=== PATIENT | male | born 1965 | race Two or more races ===

== ENCOUNTER 2018-01-04 08:34 | Emergency (ER) | payer MEDICAID ==
[~2018-01-04] VITALS: Ht 162.6 cm; Wt 93.3 kg
[~2018-01-04 08:34] MED LIST: ALPR-624 PO; FLO0.4C PO; NITR0.4T48 SL
[2018-01-04] MEDS ORDERED: ondansetron 4mg rapidly disintigrating tab PO ONE (09:15)
[2018-01-04] MEDS ORDERED: ONDA8TAB9 PO (09:49)
[2018-01-04 10:10] VITALS: BP 117/75
== END 2018-01-04 10:11 | disposition home or self-care (01) ==
LOC: ER 08:35
DX: J11.1 Influenza due to unidentified influenza virus with other respiratory manifestations (principal); B34.9 Viral infection, unspecified; Z88.8 Allergy status to other drugs, medicaments and biological substances
CPT/HCPCS: 71045; 87502; 87503; 99285

== ENCOUNTER 2019-03-19 02:32 | Emergency (ER) | payer MEDICAID ==
[~2019-03-19] VITALS: Ht 162.6 cm; Wt 86.1 kg
[~2019-03-19 02:32] MED LIST changes: +ONDA8TAB9 PO
[2019-03-19 02:40] VITALS: BP 143/78
[2019-03-19] MEDS ORDERED: DIPH25CA83 PO (03:54)
[2019-03-19] MEDS ORDERED: PANT-47 PO (10:37)
== END 2019-03-19 04:20 | disposition home or self-care (01) ==
LOC: ER 02:33
DX: H93.13 Tinnitus, bilateral (principal); M19.90 Unspecified osteoarthritis, unspecified site; Z88.8 Allergy status to other drugs, medicaments and biological substances; Z79.899 Other long term (current) drug therapy; Z56.0 Unemployment, unspecified
CPT/HCPCS: 99282

== ENCOUNTER 2019-03-19 09:10 | Emergency (ER) | payer MEDICAID ==
[~2019-03-19] VITALS: Ht 162.6 cm; Wt 93.2 kg
[~2019-03-19 09:10] MED LIST changes: +DIPH25CA83 PO
[2019-03-19] MEDS ORDERED: acetaminophen 325mg tablet PO ONE (09:55)
[2019-03-19] MEDS ORDERED: normal saline 1000ML IV soln IVB ONE (09:55)
[2019-03-19] MEDS ORDERED: ondansetron/PF 4mg/2ml inj IV ONE (09:55)
[2019-03-19 10:15] LABS: BASOPHILS % (AUTO) 0.3 % (0-1); EOSINOPHILS % (AUTO) 0.2 % (0-6); HEMATOCRIT 45.9 % (42.0-52.0); HEMOGLOBIN 15.3 g/dl (14.0-17.9); LYMPHOCYTES # (AUTO) 0.8 X10'3 (1.1-4.8); LYMPHOCYTES % (AUTO) 10.7 % (21-51); MEAN CORPUSCULAR HEMOGLOBIN 29.1 PG (27.0-31.0); MEAN CORPUSCULAR HGB CONC 33.3 g/dL (33.0-36.5); MEAN CORPUSCULAR VOLUME 87.6 FL (78-98); MEAN PLATELET VOLUME 9.4 FL (7.4-10.4); MONOCYTES # (AUTO) 0.5 X10'3 (0-0.9); MONOCYTES % (AUTO) 6.7 % (2-12); NEUTROPHILS % (AUTO) 82.1 % (42-75); PLATELET COUNT 143 X10'3 (140-440); RED BLOOD COUNT 5.24 X10'6 (4.70-6.10); RED CELL DISTRIBUTION WIDTH 16.1 % (11.5-14.5); WHITE BLOOD COUNT 7.4 X10'3 (4.5-11.0)
[2019-03-19 10:24] LABS: ALANINE AMINOTRANSFERASE 27 U/L (12-78); ALBUMIN 4.1 G/DL (3.4-5.0); ALBUMIN/GLOBULIN RATIO 1.4 (1.1-1.5); ALKALINE PHOSPHATASE 77 IU/L (46-116); ANION GAP 8 (8-16); ASPARTATE AMINO TRANSFERASE 22 U/L (10-37); BILIRUBIN,TOTAL 1.1 MG/DL (0.1-1.0); BLOOD UREA NITROGEN 9 MG/DL (7-18); BUN/CREATININE RATIO 10.1 (5.4-32.0); CALCIUM 9.1 MG/DL (8.5-10.1); CHLORIDE 104 MMOL/L (99-107); CREATININE 0.89 MG/DL (0.60-1.10); GLUCOSE 121 MG/DL (70-104); POTASSIUM 3.1 MMOL/L (3.5-5.1); SODIUM 137 MMOL/L (135-145); TOTAL CARBON DIOXIDE 25.2 MMOL/L (24-32); eGFR 89 ML/MIN
[2019-03-19 10:27] LABS: TROPONIN I < 0.04 NG/ML (0.0-0.05)
[2019-03-19] MEDS ORDERED: potassium Cl 20 mEq SR tablet PO STA (10:28)
[2019-03-19 10:33] LABS: MAGNESIUM 2.1 MG/DL (1.5-2.4)
[2019-03-19] MEDS ORDERED: PANT-47 PO (10:37)
[2019-03-19 11:11] VITALS: BP 149/78
== END 2019-03-19 11:12 | disposition home or self-care (01) ==
LOC: ER 09:11
DX: E87.6 Hypokalemia (principal); R10.84 Generalized abdominal pain; M19.90 Unspecified osteoarthritis, unspecified site; Z56.0 Unemployment, unspecified; Z88.6 Allergy status to analgesic agent; Z79.899 Other long term (current) drug therapy
CPT/HCPCS: 36415; 80053; 83735; 84484; 85025; 93005; 96374; 99284; J2405; J7030

== ENCOUNTER 2020-09-20 06:16 | Day surgery (SDC) | payer MEDICAID ==
[2020-09-13 14:59] LABS: BASOPHILS # (AUTO) 0.1 X10'3 (0-0.2); BASOPHILS % (AUTO) 0.9 % (0-1); EOSINOPHILS # (AUTO) 0.3 X10'3 (0-0.9); EOSINOPHILS % (AUTO) 5.2 % (0-6); LYMPHOCYTES # (AUTO) 1.4 X10'3 (1.1-4.8); LYMPHOCYTES % (AUTO) 22.6 % (21-51); MEAN CORPUSCULAR HEMOGLOBIN 32.7 PG (27.0-31.0); MEAN CORPUSCULAR HGB CONC 34.2 g/dL (33.0-36.5); MEAN CORPUSCULAR VOLUME 95.7 FL (78-98); MEAN PLATELET VOLUME 10.1 FL (7.4-10.4); MONOCYTES # (AUTO) 0.5 X10'3 (0-0.9); MONOCYTES % (AUTO) 7.6 % (2-12); NEUTROPHILS # (AUTO) 4.1 X10'3 (1.8-7.7); NEUTROPHILS % (AUTO) 63.7 % (42-75); PRE OP HEMATOCRIT 46.3 % (42.0-52.0); PRE OP HEMOGLOBIN 15.8 g/dL (14.0-17.9); PRE OP PLATELET COUNT 142 X10'3 (140-440); RED BLOOD COUNT 4.83 X10'6 (4.70-6.10); RED CELL DISTRIBUTION WIDTH 13.6 % (11.5-14.5)
[2020-09-13 15:05] LABS: ALBUMIN 3.9 G/DL (3.4-5.0); ALBUMIN/GLOBULIN RATIO 1.3 (1.1-1.5); ALKALINE PHOSPHATASE 77 IU/L (46-116); BLOOD UREA NITROGEN 18 MG/DL (7-18); BUN/CREATININE RATIO 18.9 (5.4-32.0); CALCIUM 8.2 MG/DL (8.5-10.1); CHLORIDE 102 MMOL/L (99-107); CREATININE 0.95 MG/DL (0.60-1.10); PRE OP ALT 32 U/L (30-65); PRE OP ANION GAP 8 (8-16); PRE OP AST 26 U/L (10-37); PRE OP BILIRUB, TOTAL 0.9 MG/DL (0.0-1.0); PRE OP GLUCOSE 102 MG/DL (70-104); PRE OP SODIUM 137 MMOL/L (135-145); TOTAL CARBON DIOXIDE 27.2 MMOL/L (24-32); eGFR 82 ML/MIN
[~2020-09-20] VITALS: Ht 157.5 cm; Wt 98.9 kg
[2020-09-20] VITALS (7 sets, daily range): BP systolic 107–121; BP diastolic 65–75
[~2020-09-20 06:16] MED LIST changes: -ALPR-624 PO; +BUSP10TA11 PO; -DIPH25CA83 PO; +DIVA-81 PO; +DOCUMENT DATE & TIME OF BETA-BLOCKER PO ONE; +DULO-31 PO; -FLO0.4C PO; +HYDR-4353 PO; -NITR0.4T48 SL; -ONDA8TAB9 PO; +PROP10TA10 PO; +TERA5CAP4 PO; +TRAZ-256 PO; +ceFAZolin 2gm in dextrose, iso 50 ML IV ONE; +famotidine 10mg tablet PO ONE; +ringers solution, lacted 1,000 ML IV SCH
[2020-09-20] MEDS ORDERED: BUPIVAcaine/PF 2.5mg/ml (0.25%) 10ml vial ONE (06:40)
[2020-09-20] MEDS ORDERED: ondansetron/PF 4mg/2ml inj IV PRN (07:25)
[2020-09-20] MEDS ORDERED: proCHLORperazine 10 MG/2 ml inj IV PRN (07:25)
[2020-09-20] MEDS ORDERED: meperidine/PF 25mg/ml syringe IV PRN ×2 (07:25)
[2020-09-20] MEDS ORDERED: ringers solution, lacted 1,000 ML IV SCH (07:25)
[2020-09-20] MEDS ORDERED: morphine 4 MG/ML inj SYRINge IV PRN (07:25)
[2020-09-20] MEDS ORDERED: morphine 2 MG/ML inj. syringe IV PRN (07:25)
[2020-09-20] MEDS ORDERED: LIDOcaine 1% 30ml preserv. free vial ONE (07:34)
[2020-09-20] MEDS ORDERED: fentaNYL/PF 50MCG/1 ML 2ML syringe ONE (08:30)
[2020-09-20] MEDS ORDERED: MIDAZolam 5mg/5ml vial ONE (08:30)
[2020-09-20] MEDS ORDERED: ketorolac trometh. 30mg/ml inj. ONE (08:36)
[2020-09-20] MEDS ORDERED: 0.9 % SODIUM CHLORIDE 10 ML VIAL ONE (08:36)
[2020-09-20] MEDS ORDERED: propofol inj 20 ML IV ONE (09:04)
--- NOTE | 2020-09-20 09:16 | NUR ---
Received from OR via [facility] , accompanied by Anesthesiologist PARADISE and report given by Anesthesiolgist. PATIENT WITH 20G PIV IN RIGHT UE RUNNING LR AT 100. LEFT WRIST DRESSING IS CDI. + CAP REFILL. NO DRAINAGE PRESENT TO LEFT WRIST DRESSING. VSS. Addendum: 09/20/20 at 0924 by Patricio Shaikh RN, RN Amended: Links added.
[2020-09-20] MEDS: meperidine/PF 25mg/ml syringe IV PRN ×2 (09:28→09:50)
--- NOTE | 2020-09-20 10:16 | NUR ---
D/C FROM PACU PATIENT AND FAMILY AND THEY HAVE VERBALIZED UNDERSTANDING, OPPORTUNITY TO ASK QUESTIONS GIVEN AND PATIENT COMFORTABLE WITH DC. IV TAKEN OUT WITHOUT COMPLICATION. PATIENT HAS MET ALL DC CRITERIA FOR DC HOME. I HAVE REVIEWED D/C INSTRUCTIONS WITH OUT VIA WHEELCHAIR WHERE PATIENT WAS TAKEN HOME WITH ALL BELONGINGS. FAMILY GAVE PATIENT TRANSPORT HOME. Addendum: 09/20/20 at 1017 by Patricio Shaikh RN, RN Amended: Links added.
== END 2020-09-20 10:16 | disposition home or self-care (01) ==
LOC: PAS 06:16
PROVIDERS: ATTEND Orthopaedic Surgery Hand Surgery
DX: G56.22 Lesion of ulnar nerve, left upper limb (principal); M62.542 Muscle wasting and atrophy, not elsewhere classified, left hand; M19.011 Primary osteoarthritis, right shoulder; M17.0 Bilateral primary osteoarthritis of knee; I10 Essential (primary) hypertension; N40.0 Benign prostatic hyperplasia without lower urinary tract symptoms; E66.01 Morbid (severe) obesity due to excess calories; Z68.38 Body mass index [BMI] 38.0-38.9, adult; Z98.890 Other specified postprocedural states; Z20.828 Contact with and (suspected) exposure to other viral communicable diseases; Z79.899 Other long term (current) drug therapy; Z87.891 Personal history of nicotine dependence; Z88.8 Allergy status to other drugs, medicaments and biological substances
CPT/HCPCS: 36415; 64719; 64721; 80053; 82948; 85025; 87635; 93005; J1885; J2001; J2175; J2250; J2270; J2704; J3010; J3490; A4215; J7120

== ENCOUNTER 2020-10-22 08:16 | Inpatient (IN) | payer MEDICARE, MEDICAID ==
[2020-10-14 15:00] LABS: BASOPHILS % (AUTO) 0.4 % (0-1); EOSINOPHILS # (AUTO) 0.3 X10'3 (0-0.9); EOSINOPHILS % (AUTO) 4.6 % (0-6); LYMPHOCYTES # (AUTO) 1.3 X10'3 (1.1-4.8); LYMPHOCYTES % (AUTO) 20.6 % (21-51); MEAN CORPUSCULAR HEMOGLOBIN 33.4 PG (27.0-31.0); MEAN CORPUSCULAR HGB CONC 34.3 g/dL (33.0-36.5); MEAN CORPUSCULAR VOLUME 97.2 FL (78-98); MEAN PLATELET VOLUME 10.2 FL (7.4-10.4); MONOCYTES # (AUTO) 0.5 X10'3 (0-0.9); MONOCYTES % (AUTO) 8.1 % (2-12); NEUTROPHILS # (AUTO) 4.1 X10'3 (1.8-7.7); NEUTROPHILS % (AUTO) 66.3 % (42-75); PRE OP HEMATOCRIT 47.4 % (42.0-52.0); PRE OP HEMOGLOBIN 16.3 g/dL (14.0-17.9); PRE OP PLATELET COUNT 155 X10'3 (140-440); RED BLOOD COUNT 4.88 X10'6 (4.70-6.10); RED CELL DISTRIBUTION WIDTH 13.1 % (11.5-14.5)
[2020-10-14 15:10] LABS: HEMOGLOBIN A1C 5.7 % (4.5-6.2)
[2020-10-14 15:15] LABS: ALBUMIN/GLOBULIN RATIO 1.3 (1.1-1.5); ALKALINE PHOSPHATASE 87 IU/L (46-116); BLOOD UREA NITROGEN 15 MG/DL (7-18); BUN/CREATININE RATIO 19.2 (5.4-32.0); CALCIUM 8.3 MG/DL (8.5-10.1); CHLORIDE 102 MMOL/L (99-107); CREATININE 0.78 MG/DL (0.60-1.10); PRE OP ALT 27 U/L (30-65); PRE OP ANION GAP 7 (8-16); PRE OP AST 16 U/L (10-37); PRE OP BILIRUB, TOTAL 0.7 MG/DL (0.0-1.0); PRE OP GLUCOSE 117 MG/DL (70-104); PRE OP POTASSIUM 4.2 MMOL/L (3.4-5.1); PRE OP SODIUM 137 MMOL/L (135-145); TOTAL CARBON DIOXIDE 27.8 MMOL/L (24-32); eGFR > 90 ML/MIN
[~2020-10-22] VITALS: Ht 162.6 cm; Wt 100.9 kg
[2020-10-22] VITALS (19 sets, daily range): BP systolic 106–163; BP diastolic 51–127
[~2020-10-22 08:16] MED LIST changes: -famotidine 10mg tablet PO ONE; +famotidine 20mg tablet PO ONE; -ringers solution, lacted 1,000 ML IV SCH; +tranexamic acid 1gm/0.7% sal. 100 ML IV ONE; +vancomycin 1,500 MG in NS 300ml IV soln IV ONE
[2020-10-22] MEDS: ringers solution, lacted 1,000 ML IV SCH ×2 (09:05→18:09)
[2020-10-22] MEDS ORDERED: mineral oil 10ml sterile, topical TP ONE (11:03)
[2020-10-22] MEDS ORDERED: ROPIVAcaine inj 200 MG, ketorolac tromethamine inj. 15 MG in normal saline 100ml IV sol... IU ONE ×2 (11:15→11:40)
[2020-10-22] MEDS ORDERED: proCHLORperazine 10 MG/2 ml inj IV PRN (11:40)
[2020-10-22] MEDS ORDERED: acetaminophen 1,000mg/100ml IV 100 ML IV PRN (11:40)
[2020-10-22] MEDS ORDERED: ringers solution, lacted 1,000 ML IV SCH (11:40)
[2020-10-22] MEDS ORDERED: morphine 4 MG/ML inj SYRINge IV PRN (11:40)
[2020-10-22] MEDS ORDERED: HYDROmorphone/PF 0.2 MG/ML SYRINGE IV PRN ×2 (11:40)
[2020-10-22] MEDS ORDERED: ROPIVAcaine 0.2% (10 MG/5 ML) BOLUS INJECTION ADDCANAL PRN (11:40)
[2020-10-22] MEDS ORDERED: ondansetron/PF 4mg/2ml inj IV PRN ×2 (11:40→15:45)
[2020-10-22] MEDS ORDERED: meperidine/PF 25mg/ml syringe IV PRN (11:40)
[2020-10-22] MEDS ORDERED: morphine 2 MG/ML inj. syringe IV PRN (11:40)
[2020-10-22] MEDS ORDERED: tetracaine 1% (10mg/ml) pres. free inj. ONE (11:43)
[2020-10-22] MEDS ORDERED: MIDAZolam 5mg/5ml vial ONE (12:33)
[2020-10-22] MEDS ORDERED: propofol inj 20 ML IV ONE ×6 (12:58→14:26)
[2020-10-22] MEDS ORDERED: ePHEDrine 50MG/ML INJ. ONE ×2 (13:32→13:35)
[2020-10-22] MEDS ORDERED: phenylephrine 10mg/ml inj. ONE (14:02)
[2020-10-22] MEDS ORDERED: 0.9 % SODIUM CHLORIDE 10 ML VIAL ONE (14:02)
[2020-10-22] MEDS ORDERED: ROPIVAcaine 0.5% (5mg/ml) 30ml vial ONE (14:53)
--- NOTE | 2020-10-22 15:39 | NUR ---
Received from OR via , accompanied by Anesthesiologist DR PAGE and report given by Anesthesiolgist. AWAKE AND ДМИТРИЙ PAIN. VITALS STABLE. DRESSING DI. SENSATION JUST ABOVE THE HIPS. GARCIA WITH CLEAR URINE.
[2020-10-22] MEDS ORDERED: bisacodyl 10mg suppository rectal RC PRN (15:45)
[2020-10-22] MEDS ORDERED: oxyCODONE IR 5mg (immed. release) tablet PO PRN (15:45)
[2020-10-22] MEDS ORDERED: acetaminophen 325mg tablet PO PRN (15:45)
[2020-10-22] MEDS ORDERED: diphenhydrAMINE 25mg capsule PO PRN ×2 (15:45)
[2020-10-22] MEDS ORDERED: HYDROmorphone inj. 0.5 MG/0.5 ML DISP.SYRIN IV PRN (15:45)
[2020-10-22] MEDS ORDERED: magnesium hydroxide 30ml (MOM) UD suspension PO PRN (15:45)
[2020-10-22] MEDS: ROPIVAcaine 0.2%/PF PUMP/bolus 550 ML ADDCANAL SCH (15:58)
--- NOTE | 2020-10-22 16:49 | NUR ---
Report called to receiving nurse. Transferred via [facility] Belongings . Special Issues communicated to receiving nurse. AWAKE AND ORIENTED. VITALS STABLE. DRESSING DI. ДМИТРИЙ PAIN. TO ORTHO RM [id number] AT THIS TIME.
[2020-10-22] MEDS: ceFAZolin/D5W- 1GM premix 50 ML IV SCH (18:49)
[2020-10-22] MEDS: oxyCODONE IR 5mg (immed. release) tablet PO PRN (18:50)
[2020-10-22] MEDS ORDERED: tranexamic acid inj. 1,000 MG in normal saline 100ml IV soln 100 ML IV ONE (19:00)
[2020-10-22] MEDS ORDERED: vancomycin/NS 1 GM ADD-VANTAGE 250 ML IV SCH (20:00)
[2020-10-22] MEDS: sennosides 8.6mg tablet PO SCH (20:24)
[2020-10-22] MEDS: acetaminophen 325mg tablet PO SCH (20:25)
[2020-10-22] MEDS: traZODone 50mg tablet PO SCH (20:25)
[2020-10-22] MEDS: terazosin 5mg capsule PO SCH (20:25)
[2020-10-22] MEDS: potassium cl 20mEq in 1/2 NS 1,000 ML IV SCH ×2 (20:26→23:45)
[2020-10-22] MEDS: divalproex sod 250mg ER (24-hour) tablet PO SCH (21:02)
[2020-10-22] MEDS: HYDROmorphone 1 mg/ml syringe IV PRN (21:03)
[2020-10-23] MEDS: oxyCODONE IR 5mg (immed. release) tablet PO PRN ×5 (01:13→20:33)
[2020-10-23] MEDS: ceFAZolin/D5W- 1GM premix 50 ML IV SCH (01:13)
[2020-10-23] MEDS: acetaminophen 325mg tablet PO SCH ×4 (01:13→20:32)
[2020-10-23 02:00] VITALS: BP 103/57
[2020-10-23] MEDS: HYDROmorphone 1 mg/ml syringe IV PRN (02:35)
[2020-10-23 06:00] VITALS: BP 96/93
--- NOTE | 2020-10-23 06:12 | NUR ---
Problems reprioritized. Patient report given, questions answered & plan of care reviewed with PHIL Dao.
[2020-10-23 06:28] LABS: BASOPHILS % (AUTO) 0.6 % (0-1); EOSINOPHILS # (AUTO) 0.2 X10'3 (0-0.9); EOSINOPHILS % (AUTO) 2.5 % (0-6); HEMATOCRIT 37.2 % (42.0-52.0); HEMOGLOBIN 12.9 g/dl (14.0-17.9); LYMPHOCYTES % (AUTO) 16.5 % (21-51); MEAN CORPUSCULAR HEMOGLOBIN 33.1 PG (27.0-31.0); MEAN CORPUSCULAR HGB CONC 34.6 g/dL (33.0-36.5); MEAN CORPUSCULAR VOLUME 95.6 FL (78-98); MEAN PLATELET VOLUME 9.7 FL (7.4-10.4); MONOCYTES # (AUTO) 0.6 X10'3 (0-0.9); MONOCYTES % (AUTO) 9.9 % (2-12); NEUTROPHILS # (AUTO) 4.3 X10'3 (1.8-7.7); NEUTROPHILS % (AUTO) 70.5 % (42-75); PLATELET COUNT 111 X10'3 (140-440); RED BLOOD COUNT 3.89 X10'6 (4.70-6.10); RED CELL DISTRIBUTION WIDTH 12.7 % (11.5-14.5); WHITE BLOOD COUNT 6.1 X10'3 (4.5-11.0)
[2020-10-23 06:53] LABS: ANION GAP 4 (8-16); CHLORIDE 107 MMOL/L (99-107); POTASSIUM 3.9 MMOL/L (3.5-5.1); SODIUM 140 MMOL/L (135-145); TOTAL CARBON DIOXIDE 28.9 MMOL/L (24-32)
[2020-10-23] MEDS: potassium cl 20mEq in 1/2 NS 1,000 ML IV SCH ×2 (07:45→15:45)
[2020-10-23] MEDS: aspirin 325mg tablet PO SCH (09:59)
[2020-10-23] MEDS: duloxetine 30mg CAPSULE.DR PO SCH (09:59)
[2020-10-23] MEDS: propranolol 10mg tablet PO SCH (09:59)
[2020-10-23] MEDS: busPIRone 15mg tablet PO SCH (09:59)
[2020-10-23 10:00] VITALS: BP_SYST 115; BP_SYST 118; BP_DIAS 47; BP_DIAS 57
[2020-10-23] MEDS ORDERED: ASPI-1 PO (10:48)
[2020-10-23 14:00] VITALS: BP 93/50
[2020-10-23 18:00] VITALS: BP 137/72
--- NOTE | 2020-10-23 18:40 | NUR ---
Problems reprioritized. Patient report given, questions answered & plan of care reviewed with Crystal VILLARREAL.
--- NOTE | 2020-10-23 18:47 | NUR ---
Patient in room ORTHO 4013. I have received report from Sylwia VILLARREAL and had the opportunity to ask questions and assume patient care.
[2020-10-23] MEDS: terazosin 5mg capsule PO SCH (20:32)
[2020-10-23] MEDS: divalproex sod 250mg ER (24-hour) tablet PO SCH (20:32)
[2020-10-23] MEDS: celeCOXIB 100mg capsule PO SCH (20:32)
[2020-10-23] MEDS: traZODone 50mg tablet PO SCH (20:32)
[2020-10-23] MEDS: sennosides 8.6mg tablet PO SCH (20:33)
[2020-10-23 22:00] VITALS: BP 113/70
[2020-10-24] MEDS: acetaminophen 325mg tablet PO SCH ×3 (02:30→15:24)
[2020-10-24] MEDS: ROPIVAcaine 0.2%/PF PUMP/bolus 550 ML ADDCANAL SCH (02:31)
[2020-10-24] MEDS: oxyCODONE IR 5mg (immed. release) tablet PO PRN ×3 (05:32→15:22)
[2020-10-24 06:00] VITALS: BP 101/67
--- NOTE | 2020-10-24 06:32 | NUR ---
Problems reprioritized. Patient report given, questions answered & plan of care reviewed with Analilia VILLARREAL.
[2020-10-24 07:44] LABS: BASOPHILS % (AUTO) 0.3 % (0-1); EOSINOPHILS # (AUTO) 0.1 X10'3 (0-0.9); EOSINOPHILS % (AUTO) 1.7 % (0-6); HEMATOCRIT 37.4 % (42.0-52.0); HEMOGLOBIN 12.9 g/dl (14.0-17.9); LYMPHOCYTES # (AUTO) 0.8 X10'3 (1.1-4.8); LYMPHOCYTES % (AUTO) 9.2 % (21-51); MEAN CORPUSCULAR HEMOGLOBIN 33.3 PG (27.0-31.0); MEAN CORPUSCULAR HGB CONC 34.6 g/dL (33.0-36.5); MEAN CORPUSCULAR VOLUME 96.3 FL (78-98); MEAN PLATELET VOLUME 10.1 FL (7.4-10.4); MONOCYTES % (AUTO) 12.6 % (2-12); NEUTROPHILS # (AUTO) 6.3 X10'3 (1.8-7.7); NEUTROPHILS % (AUTO) 76.2 % (42-75); PLATELET COUNT 119 X10'3 (140-440); RED BLOOD COUNT 3.88 X10'6 (4.70-6.10); WHITE BLOOD COUNT 8.2 X10'3 (4.5-11.0)
[2020-10-24] MEDS: celeCOXIB 100mg capsule PO SCH (08:00)
[2020-10-24] MEDS: busPIRone 15mg tablet PO SCH (08:02)
[2020-10-24] MEDS: duloxetine 30mg CAPSULE.DR PO SCH (08:02)
[2020-10-24] MEDS: aspirin 325mg tablet PO SCH (08:02)
[2020-10-24] MEDS: propranolol 10mg tablet PO SCH (08:02)
[2020-10-24 10:00] VITALS: BP 107/61
--- NOTE | 2020-10-24 10:42 | NUR ---
Joint Replacement Consult: Pt s/p L-TKA PO 75-100% avg regular diet meeting needs. LBM 10/22. No nutrition concerns at this time. To f/u 10/27 for initial assessment. Addendum: 10/24/20 at [address] Amended: Links added.
[2020-10-24] MEDS ORDERED: acetaminophen 325mg tablet PO PRN (15:45)
== END 2020-10-24 15:42 | disposition home or self-care (01) | DRG 470 ==
LOC: PAS 08:16 → ORTHO 4S 15:44
PROVIDERS: ADMIT Orthopaedic Surgery; ATTEND Orthopaedic Surgery
PROC: 8E0YXBZ Computer Assisted Procedure of Lower Extremity (ICD-10-PCS; 2020-10-22)
PROC: 8E0Y0CZ Robotic Assisted Procedure of Lower Extremity, Open Approach (ICD-10-PCS; 2020-10-22)
PROC: 0SRD0J9 Replacement of Left Knee Joint with Synthetic Substitute, Cemented, Open Approach (ICD-10-PCS; principal; 2020-10-22 12:22)
DX: M17.12 Unilateral primary osteoarthritis, left knee (principal); D62 Acute posthemorrhagic anemia; M21.162 Varus deformity, not elsewhere classified, left knee; I10 Essential (primary) hypertension; Z79.899 Other long term (current) drug therapy
CPT/HCPCS: 36415; 80051; 80053; 82948; 83036; 85025; 87081; 87635; 97110; 97116; 97161; 97530; A4215; A7000; C1713; C1758; C1776; G0378; J0690; J1170; J2250; J2370; J2405; J2704; J2795; J3370; J3480; J7040; J7120

== ENCOUNTER 2023-05-07 15:18 | Emergency (ER) | payer MEDICAID, MEDICARE ==
[~2023-05-07 15:18] MED LIST changes: +ASPI-1 PO; -DOCUMENT DATE & TIME OF BETA-BLOCKER PO ONE; -ceFAZolin 2gm in dextrose, iso 50 ML IV ONE; -famotidine 20mg tablet PO ONE; -tranexamic acid 1gm/0.7% sal. 100 ML IV ONE; -vancomycin 1,500 MG in NS 300ml IV soln IV ONE
[2023-05-07 15:25] VITALS: BP 119/55
[2023-05-07 16:05] LABS: CLARITY,URINE SLIGHTLY CLOUDY (Clear); COLOR,URINE YELLOW (Yellow); GLUCOSE, URINE NEGATIVE (Neg); KETONES,URINE TRACE mg/dl (Neg); LEUKOCYTE ESTERASE ,URINE NEGATIVE (Neg); NITRITES, URINE NEGATIVE (Neg); OCCULT BLOOD,URINE NEGATIVE (Neg); PROTEIN,URINE NEGATIVE (Neg)
[2023-05-07 16:06] LABS: BASOPHILS # (AUTO) 0.1 X10'3 (0-0.2); BASOPHILS % (AUTO) 0.5 % (0-1); EOSINOPHILS # (AUTO) 0.1 X10'3 (0-0.9); HEMATOCRIT 46.4 % (42.0-52.0); HEMOGLOBIN 15.5 g/dl (14.0-17.9); MEAN CORPUSCULAR HEMOGLOBIN 30.6 PG (27.0-31.0); MEAN CORPUSCULAR HGB CONC 33.3 g/dL (33.0-36.5); MEAN CORPUSCULAR VOLUME 91.8 FL (78-98); MONOCYTES # (AUTO) 1.5 X10'3 (0-0.9); NEUTROPHILS # (AUTO) 8.8 X10'3 (1.8-7.7); NEUTROPHILS % (AUTO) 76.5 % (42-75); PLATELET COUNT 206 X10'3 (140-440); RED BLOOD COUNT 5.06 X10'6 (4.70-6.10); RED CELL DISTRIBUTION WIDTH 15.1 % (11.5-14.5); WHITE BLOOD COUNT 11.5 X10'3 (4.5-11.0)
[2023-05-07 16:07] LABS: UA COLLECTION TYPE CLN CATCH MIDSTREAM
[2023-05-07 16:12] LABS: MUCUS STRANDS MODERATE /LPF (Neg); SQUAMOUS EPITHELIAL CELL,UR FEW /LPF (FEW); WBC,URINE 0-4 /HPF (0-4)
[2023-05-07 16:13] LABS: BACTERIA,URINE NONE SEEN /HPF (Neg); RBC,URINE 0-2 /HPF (0-2)
[2023-05-07 16:18] LABS: ALANINE AMINOTRANSFERASE 15 U/L (12-78); ALBUMIN 3.4 G/DL (3.4-5.0); ALBUMIN/GLOBULIN RATIO 0.8 (1.1-1.5); ALKALINE PHOSPHATASE 71 IU/L (46-116); ANION GAP 11 (8-16); ASPARTATE AMINO TRANSFERASE 15 U/L (10-37); BILIRUBIN,TOTAL 0.6 MG/DL (0.1-1.0); BLOOD UREA NITROGEN 15 MG/DL (7-18); BUN/CREATININE RATIO 20.8 (10.0-20.0); CALCIUM 8.8 MG/DL (8.5-10.1); CHLORIDE 99 MMOL/L (99-107); CREATININE 0.72 MG/DL (0.60-1.10); GLUCOSE 90 MG/DL (70-104); LIPASE 52 U/L (73-393); SODIUM 135 MMOL/L (135-145); TOTAL CARBON DIOXIDE 25.4 MMOL/L (24-32); TOTAL PROTEIN 7.5 G/DL (6.4-8.2); eGFR > 90 ML/MIN
[2023-05-07] MEDS ORDERED: HYDR30CR79 TOP (22:51)
--- NOTE | 2023-05-07 22:59 | NUR ---
pt was not in the lobby for a long time, he was than back in the lobby. He was seen by the docor only
== END 2023-05-07 22:59 | disposition home or self-care (01) ==
LOC: ER 15:19
DX: K64.9 Unspecified hemorrhoids (principal); M19.90 Unspecified osteoarthritis, unspecified site; Z88.5 Allergy status to narcotic agent; Z56.0 Unemployment, unspecified
CPT/HCPCS: 36415; 71045; 80053; 81001; 83605; 83690; 84145; 85025; 87040; 99284